=== PATIENT | male | born 1990 | race Two or more races ===

== ENCOUNTER → 2021-12-28 | Emergency (ER) | payer SELFPAY ==
[~2021-12-28] VITALS: Ht 162.6 cm; Wt 71.7 kg
[2021-12-28 17:00] VITALS: BP 129/72
--- NOTE | 2021-12-28 17:29 | NUR ---
CALLED PT'S BROTHER, KEYONNA, [phone]; WILL CALL US BACK FOR PT'S TRANSPORTATION.
== END | disposition home or self-care (01) ==
LOC: ER 16:59
DX: F10.129 Alcohol abuse with intoxication, unspecified (principal); F17.200 Nicotine dependence, unspecified, uncomplicated; Y90.9 Presence of alcohol in blood, level not specified